=== PATIENT | female | born 1945 ===

== ENCOUNTER → 2019-11-11 | Outpatient (CLI) | payer MEDICARE, OTHER ==
[~2019-11-11] MED LIST: ALPR.25 PO; ASCO500 PO; ASPI81EC PO; CALMAGZIN PO; CHOL10002 PO; Desyrel50 MG PO; ESTR2 PO; FISH1000 PO; INSLI100I SC; LEVSOD125 PO; LIOT25 PO; LOSA50 PO; MAGOXI400 PO; MULVITMIND PO; PRAM.5 PO; Vitamin B-150 MG PO
== END | disposition home or self-care (01) ==
LOC: LAB SHORT 15:47 → LAB 15:47
DX: N39.0 Urinary tract infection, site not specified (principal)
CPT/HCPCS: 87077; 87086; 87186

== ENCOUNTER → 2019-11-25 | Outpatient (CLI) | payer MEDICARE, OTHER ==
[2019-11-25 15:57] LABS: Microalb/Creat Ratio UR, Rand Unable to Calculate mg/g (0.000-30.000); Microalbumin, Random Urine <5.000 mg/L (0.000-20.000)
== END ==
LOC: LAB SHORT 11:00 → LAB 11:00
PROVIDERS: Nurse Practitioner Family
DX: E10.65 Type 1 diabetes mellitus with hyperglycemia (principal)
CPT/HCPCS: 82043; 82570

== ENCOUNTER → 2023-05-19 | Outpatient (CLI) | payer MEDICARE, OTHER | LOC: LAB SHORT 14:00 → LAB 14:00 | DX: N39.0 Urinary tract infection, site not specified (principal) | CPT/HCPCS: 87077; 87086; 87186 ==

== ENCOUNTER → 2023-06-06 | Outpatient (CLI) | payer MEDICARE, OTHER | LOC: LAB SHORT 10:57 → LAB 10:57 | DX: N39.0 Urinary tract infection, site not specified (principal) | CPT/HCPCS: 87086 ==

== ENCOUNTER → 2025-01-26 | Outpatient (CLI) | payer MEDICARE, OTHER ==
[~2025-01-26] MED LIST changes: +BUPR150ER PO; +FURO100EL; +FURO20 PO; +GABA100; +IRBE150 PO; +IRBE75; +LIOT5; +MAGCHL64ER; +METO25ER PO; +METOPROLOL SUCC25 MG; +NOVOLOG FL100 UNIT/2; +POTA10T PO; +PRAM.125; +[UNRECOGNIZED DRUG - OTHER]
[2025-01-26 11:42] LABS: Creatinine, Urine Random 48.9 mg/dL (27.00-270.00); Microalb/Creat Ratio UR, Rand 11.513 mg/g (0.000-30.000); Microalbumin, Random Urine 5.63 mg/L (0.000-20.000)
== END | disposition home or self-care (01) ==
LOC: LAB SHORT 08:43 → LAB 08:43 → LAB FUT 10-05 12:50
PROVIDERS: Internal Medicine Endocrinology, Diabetes & Metabolism
DX: E10.65 Type 1 diabetes mellitus with hyperglycemia (principal)
CPT/HCPCS: 82043; 82570